=== PATIENT | male | born 1955 | race Caucasian/White ===

== ENCOUNTER 2016-04-05 06:20 | Day surgery (SDC) | payer MEDICARE, OTHER ==
[2016-04-03 13:53] VITALS: BMI 38.0
[~2016-04-05 06:20] MED LIST: ALPRAZolam 0.25 MG TAB PO PRN; ALPRAZolam 0.5 MG TAB PO PRN; ASPIRIN 325 MG TAB PO STA; ATORVASTATIN 80 MG TAB PO STA; NITROGLYCERIN SL TABS 0.4 MG TAB SUBLINGUAL PRN; SODIUM CHLORIDE 0.9% 1,000 ML in EMPTY BAG 1 BAG IV ONE
[2016-04-05 07:19] VITALS: RESP 20; TEMP 98.6
[2016-04-05] MEDS ORDERED: IV FLUID CONTINUATION 1,000 ML IV ONE (07:50)
[2016-04-05] MEDS ORDERED: MIDAZOLAM 2 MG/2 ML VIAL IV ONE (08:05)
[2016-04-05] MEDS ORDERED: LIDOCAINE 2% INJ 20 MG/ML SQ ONE (08:06)
[2016-04-05] MEDS ORDERED: RX INFO: IV CONTRAST WAS GIVEN 1 EACH MISC MISCELLANE PRN (08:29)
[2016-04-05] MEDS ORDERED: SODIUM CHLORIDE 0.9% 1,000 ML IV SCH (08:30)
[2016-04-05] MEDS ORDERED: IOHEXOL 350 MG/ML 100 ML BOTTLE INJ ONE (08:32)
--- NOTE | 2016-04-05 08:55 | CC ---
DATE OF SERVICE: INDICATION: Unstable angina. PROCEDURE NOTE: After obtaining informed consent, left heart catheterization and coronary angiogram are performed via the right femoral artery using standard Cj catheters. Right coronary artery was sub selectively engaged using a Gil catheter. Patient tolerated the procedure well without any obvious immediate complications. A femoral angiogram was performed and Angio-Seal was deployed for hemostasis. FINDINGS: 1. HEMODYNAMICS: Left ventricular end-diastolic pressure is 26 to 28 mm. There is no significant gradient across the aortic valve. 2. LEFT VENTRICULOGRAM: Left ventriculogram was not performed. 3. ANGIOGRAPHIC DATA: Left main coronary artery: Left main coronary artery is a normal size vessel and is free of stenosis. It divides into left anterior descending coronary artery and circumflex coronary artery. LAD and its branches, circumflex coronary artery and its branches are free of significant stenosis. Right coronary artery is a nondominant vessel and engaged sub selectively, does not reveal significant stenosis. CONCLUSIONS: 1. Normal coronary arteries. 2. Elevated left ventricular end-diastolic pressures. This patient's chest discomfort seems to be noncardiac in origin and his management is going to be in the form of risk factor modification and optimal medical therapy. I discussed these issues at length with the patient. He understands and is in agreement with the plans.
[2016-04-05 12:02] VITALS: BP 124/60; PULSE 60
== END 2016-04-05 14:00 | disposition home or self-care (01) ==
LOC: CATHCVL 06:20
PROVIDERS: ATTEND Internal Medicine Cardiovascular Disease
DX: R07.89 Other chest pain (principal); R94.39 Abnormal result of other cardiovascular function study; I10 Essential (primary) hypertension; Z79.891 Long term (current) use of opiate analgesic; Z79.51 Long term (current) use of inhaled steroids; Z79.899 Other long term (current) drug therapy
CPT/HCPCS: 93458; C1760; C1894; C1769; J2001; J2250; Q9967

== ENCOUNTER 2016-07-13 05:50 | Day surgery (SDC) | payer MEDICARE, OTHER ==
[2016-07-11 16:57] VITALS: BMI 38.2
[~2016-07-13 05:50] MED LIST changes: -ALPRAZolam 0.25 MG TAB PO PRN; -ALPRAZolam 0.5 MG TAB PO PRN; -ASPIRIN 325 MG TAB PO STA; -ATORVASTATIN 80 MG TAB PO STA; +DEXAMETHASONE SOD PHOSPHATE 10 MG/ML 1 ML VIAL IV ONE; +HEPARIN SODIUM,PORCINE 5,000 UNIT/ML 1 ML VIAL SQ ONE; +HYDROmorphone 1 MG/ML 1 ML SYRINGE IVP PRN; +LACTATED RINGERS 1,000 ML IV SCH; +LIDOCAINE 1% 20 ML VIAL (10MG/ML) FOR IV START INTRADERMA PRN; +MIDAZOLAM 2 MG/2 ML VIAL IV PRN; -NITROGLYCERIN SL TABS 0.4 MG TAB SUBLINGUAL PRN; +ONDANSETRON 4 MG/2 ML VIAL IVP ONE; +SCOPOLAMINE 1.5MG/72HR PATCH TRANSDERM ONE; -SODIUM CHLORIDE 0.9% 1,000 ML in EMPTY BAG 1 BAG IV ONE; +ceFAZolin 2 GM in SODIUM CHLORIDE 0.9% 100 ML IVPB ONE
[2016-07-13 06:52] VITALS: TEMP 97.9
--- NOTE | 2016-07-13 07:49 | P.GSHP ---
History of Present Illness H&P Date: 07/13/16 Chief Complaint: History of colon cancer This is a 60-year-old male referred from Dr. tang. Patient presents today for removal Port-A-Cath. He has a history of colon cancer. - Constitutional Constitutional: Reports as per HPI Past Medical History Past Medical History: Asthma, Cancer, Chest Pain / Angina, COPD, Hypertension, Prostate Disorder Additional Past Medical History / Comment(s): HX COLON AND PROSTATE CA, NEUROPATHY MICHEL HANDS AND FEET, irregular heart beat, hx diverticulitis, Bronchitis in 2016. History of Any Multi-Drug Resistant Organisms: None Reported Past Surgical History: Bowel Resection, Hernia Repair, Orthopedic Surgery Additional Past Surgical History / Comment(s): BOWEL RESECTION X2 (ONE FROM DIVERTICULITIS, ONE R/T CA), michel knee arthroscopy, port in chest, lymph nodes from groin, left testicule surgery for epididymitis. Currently Port not functioning. Past Anesthesia/Blood Transfusion Reactions: No Reported Reaction Past Psychological History: Anxiety, Depression Smoking Status: Former smoker Past Alcohol Use History: None Reported Additional Past Alcohol Use History / Comment(s): quit smoking 30 yrs ago, smoked for 20 yrs, 1 PPD Past Drug Use History: None Reported - Past Family History Mother Family Medical History: No Reported History Medications and Allergies Home Medications Medication Instructions Recorded Confirmed Type Albuterol Inhaler [Ventolin 2 puff INHALATION QID 02/24/15 07/11/16 History Inhaler] Budesonide/Formoterol Fumarate 1 puff INHALATION DIRECTED PRN 02/24/15 History [Symbicort 80-4.5 Mcg Inhaler] FLUoxetine HCL [PROzac] 20 mg PO TID 02/24/15 07/11/16 History Gabapentin [Neurontin] 300 mg PO BID 02/24/15 07/11/16 History Zolpidem [Ambien] 5 mg PO HS 02/24/15 07/11/16 History ALPRAZolam [Xanax] 0.25 mg PO TID PRN 04/03/16 07/11/16 History Albuterol Nebulized [Ventolin 2.5 mg INHALATION BID 04/03/16 07/11/16 History Nebulized] Aspirin [Adult Low Dose Aspirin EC] 81 mg PO HS 04/03/16 07/11/16 History Cholecalciferol [Vitamin D3] 2,000 unit PO DAILY 04/03/16 07/11/16 History Lisinopril [Zestril] 2.5 mg PO HS 04/03/16 07/11/16 History Metoprolol Tartrate [Lopressor] 50 mg PO HS 04/03/16 07/11/16 History Nitroglycerin Sl Tabs [Nitrostat] 0.4 mg SUBLINGUAL DIRECTED PRN 04/03/16 History Calcium Carbonate [Calcium] 600 mg PO DAILY 07/11/16 07/11/16 History Allergies Allergy/AdvReac Type Severity Reaction Status Date / Time No Known Allergies Allergy Verified 07/11/16 16:27 Surgical - Exam Vital Signs Temp Pulse Resp BP Pulse Ox 97.9 F 55 L 18 128/69 96 07/13/16 06:50 07/13/16 06:50 07/13/16 06:50 07/13/16 06:50 07/13/16 06:50 - General well developed, no distress - Eyes PERRL - ENT normal pinna - Neck no masses - Respiratory normal expansion - Cardiovascular Rhythm: regular - Abdomen Abdomen: soft, non tender Assessment and Plan Plan: History of colon cancer. We'll remove Port-A-Cath.
[2016-07-13] MEDS ORDERED: fentaNYL (PF) 50 MCG/ML 2 ML AMP ONE (07:53)
[2016-07-13] MEDS ORDERED: MIDAZOLAM 2 MG/2 ML VIAL ONE (07:53)
[2016-07-13] MEDS ORDERED: PROPOFOL 10 MG/ML 20 ML VIAL IV ONE (07:53)
[2016-07-13] MEDS ORDERED: LIDOCAINE 1% INJ 10MG/ML (20 ML MDV) ONE (07:53)
[2016-07-13] MEDS ORDERED: LIDOCAINE 1%-EPI 1:100,000 20 ML VIAL SQ ONE ×3 (08:16→08:19)
--- NOTE | 2016-07-13 08:30 | P.OP ---
Date of Procedure: 07/13/16 Preoperative Diagnosis: Colon cancer Postoperative Diagnosis: History of colon cancer Procedure(s) Performed: Removal of Port-A-Cath Anesthesia: MAC Surgeon: Gwyn Myesr Estimated Blood Loss (ml): 3 Pathology: none sent Condition: stable Disposition: PACU Description of Procedure: The patient's placed on the operating table in the supine position. He received IV sedation. His chest wall was prepped and draped in usual sterile fashion. The patient's skin was anesthetized 1% local Xylocaine. Then a skin incision was made over the Port-A-Cath. Using blunt and sharp dissection with cautery the removed from subcutaneous tissues. The Bovie was used for hemostasis. The skin was closed interrupted 3-0 Monocryl suture. Dermabond was applied. Patient top she will well and was sent to cover room stable condition.
[2016-07-13 09:02] VITALS: RESP 16
[2016-07-13 09:17] VITALS: BP 110/52; PULSE 55
== END 2016-07-13 09:27 | disposition home or self-care (01) ==
LOC: OR 05:50
PROVIDERS: ATTEND Surgery
DX: Z45.2 Encounter for adjustment and management of vascular access device (principal); C18.9 Malignant neoplasm of colon, unspecified; J44.9 Chronic obstructive pulmonary disease, unspecified; Z87.891 Personal history of nicotine dependence; I10 Essential (primary) hypertension; I25.10 Atherosclerotic heart disease of native coronary artery without angina pectoris; Z85.46 Personal history of malignant neoplasm of prostate; G62.9 Polyneuropathy, unspecified; Z79.82 Long term (current) use of aspirin; Z79.51 Long term (current) use of inhaled steroids; Z79.899 Other long term (current) drug therapy
CPT/HCPCS: 36590; J2250; J1644; J1100; J0690; J2405; J2001; J3010; J2704

== ENCOUNTER 2018-10-23 10:36 | Emergency (ER) | payer MEDICARE, OTHER ==
[2018-10-23] MEDS ORDERED: KETOROLAC 60 MG/2 ML VIAL IM STA (11:32)
--- NOTE | 2018-10-23 11:38 | ED ---
Back Pain HPI - General Chief Complaint: Back Pain/Injury Stated Complaint: rt sided back/leg pain Time Seen by Provider: 10/23/18 11:15 Source: patient Limitations: no limitations - History of Present Illness Initial Comments: Patient is a 63-year-old male presenting to the emergency Department with complaints of right low back pain radiating down the back of the right leg 3 days. Patient denies any injuries or trauma to the area. Patient has long- standing history of lumbar disc disease, history of colon and prostate cancer. Patient states he went to [facility] yesterday for same complaint. Patient did have a x-ray that was normal. Patient states they did not take his complaints seriously and gave him orthopedic referral about an hour away. Patient states the pain is not getting better and he wanted another opinion. Patient states he normally walks with a cane and states he's been having trouble even walking. Patient denies loss of bowel or bladder control, saddle paresthesias. No other complaints at this time. - Related Data Home Medications Medication Instructions Recorded Confirmed Albuterol Inhaler [Ventolin 2 puff INHALATION QID 02/24/15 07/11/16 Inhaler] Budesonide/Formoterol Fumarate 1 puff INHALATION DIRECTED PRN 02/24/15 07/11/16 [Symbicort 80-4.5 Mcg Inhaler] FLUoxetine HCL [PROzac] 20 mg PO TID 02/24/15 07/11/16 Gabapentin [Neurontin] 300 mg PO BID 02/24/15 07/11/16 Zolpidem [Ambien] 5 mg PO HS 02/24/15 07/11/16 ALPRAZolam [Xanax] 0.25 mg PO TID PRN 04/03/16 07/11/16 Albuterol Nebulized [Ventolin 2.5 mg INHALATION BID 04/03/16 07/11/16 Nebulized] Aspirin [Adult Low Dose Aspirin EC] 81 mg PO HS 04/03/16 07/11/16 Cholecalciferol [Vitamin D3] 2,000 unit PO DAILY 04/03/16 07/11/16 Lisinopril [Zestril] 2.5 mg PO HS 04/03/16 07/11/16 Metoprolol Tartrate [Lopressor] 50 mg PO HS 04/03/16 07/11/16 Nitroglycerin Sl Tabs [Nitrostat] 0.4 mg SUBLINGUAL DIRECTED PRN 04/03/16 07/11/16 Calcium Carbonate [Calcium] 600 mg PO DAILY 07/11/16 07/11/16 Previous Rx's Medication Instructions Recorded predniSONE 20 mg PO BID 5 Days #10 tab 10/23/18 Allergies Allergy/AdvReac Type Severity Reaction Status Date / Time No Known Allergies Allergy Verified 10/23/18 11:14 Review of Systems ROS Statement: Those systems with pertinent positive or pertinent negative responses have been documented in the HPI. ROS Other: All systems not noted in ROS Statement are negative. Past Medical History Past Medical History: Asthma, Cancer, Chest Pain / Angina, COPD, Hypertension, Prostate Disorder Additional Past Medical History / Comment(s): HX COLON AND PROSTATE CA, NEUROPATHY MICHEL HANDS AND FEET, irregular heart beat, hx diverticulitis, Bronchitis in 2016. History of Any Multi-Drug Resistant Organisms: None Reported Past Surgical History: Bowel Resection, Hernia Repair, Orthopedic Surgery Additional Past Surgical History / Comment(s): BOWEL RESECTION X2 (ONE FROM DIVERTICULITIS, ONE R/T CA), michel knee arthroscopy, port in chest, lymph nodes from groin, left testicule surgery for epididymitis. Currently Port not functioning. Past Anesthesia/Blood Transfusion Reactions: No Reported Reaction Past Psychological History: Anxiety, Depression Smoking Status: Former smoker Past Alcohol Use History: None Reported Past Drug Use History: None Reported - Past Family History Mother Family Medical History: No Reported History General Exam - General Exam Comments Initial Comments: GENERAL: Well-appearing, well-nourished and in no acute distress. HEAD: Atraumatic, normocephalic. EYES: Pupils equal round and reactive to light, extraocular movements intact, sclera anicteric, conjunctiva are normal. ENT: TMs normal, nares patent, oropharynx clear without exudates. Moist mucous membranes. NECK: Normal range of motion, supple without lymphadenopathy or JVD. LUNGS: Breath sounds clear to auscultation bilaterally and equal. No wheezes rales or rhonchi. HEART: Regular rate and rhythm without murmurs, rubs or gallops. ABDOMEN: Soft, nontender, normoactive bowel sounds. No guarding, no rebound. No masses appreciated. : Deferred EXTREMITIES: No pitting or edema. No clubbing or cyanosis. Pain with palpation of the right lumbar area, paraspinals, right gluteal. Positive SLR on right and increased pain with dorsiflexion of the right foot. Sensation is equal in bilateral lower extremities. Patient's strength is 5 out of 5 lower extremities. NEUROLOGICAL: Cranial nerves II through XII grossly intact. Normal speech, normal gait. PSYCH: Normal mood, normal affect. SKIN: Warm, Dry, normal turgor, no rashes or lesions noted. Limitations: no limitations Course Vital Signs 10/23/18 10/23/18 11:11 12:09 Temperature 98.5 F 97.8 F Pulse Rate 61 75 Respiratory 20 17 Rate Blood Pressure 132/71 127/74 O2 Sat by Pulse 99 98 Oximetry Medical Decision Making - Medical Decision Making Patient is 63-year-old male with complaints of right-sided low back pain with radiation into his right lower leg. Patient denies any trauma. Patient has long-standing history of lumbar disc disease as well as a history of colon cancer and prostate cancer. On exam patient has and symptoms consistent with right sciatica. Was discussed with patient that he continue with anti- inflammatories, Tylenol, alternating between the 2. Patient will use heat and ice in the area. Referral was given for orthopedic. Patient is in agreement with this plan. Patient is stable for discharge. Case discussed with Dr. Lange. Disposition Clinical Impression: Low back pain, Sciatica Disposition: HOME SELF-CARE Condition: Stable Instructions (If sedation given, give patient instructions): Sciatica (ED) Additional Instructions: Please return to the Emergency Department if symptoms worsen or any other concerns. Follow up with orthopedics as discussed. Prescriptions: predniSONE 20 mg PO BID 5 Days #10 tab Is patient prescribed a controlled substance at d/c from ED?: No Referrals: Mohan Mcdonald MD [Primary Care Provider] - 1-2 days
[2018-10-23 12:17] VITALS: BP 127/74; PULSE 75; RESP 17; TEMP 97.8
== END 2018-10-23 12:11 | disposition home or self-care (01) ==
LOC: EC 10:36
DX: M54.41 Lumbago with sciatica, right side (principal); J44.9 Chronic obstructive pulmonary disease, unspecified; I20.9 Angina pectoris, unspecified; I10 Essential (primary) hypertension; G62.9 Polyneuropathy, unspecified; F32.9 Major depressive disorder, single episode, unspecified; F41.9 Anxiety disorder, unspecified; Z87.891 Personal history of nicotine dependence; Z79.82 Long term (current) use of aspirin; Z79.899 Other long term (current) drug therapy; Z85.038 Personal history of other malignant neoplasm of large intestine; Z85.46 Personal history of malignant neoplasm of prostate; Z90.49 Acquired absence of other specified parts of digestive tract
CPT/HCPCS: 99283; 96372; J1885

== ENCOUNTER → 2019-04-06 | Outpatient (CLI) | payer MEDICARE, OTHER ==
[2019-04-06 11:20] LABS: Basophils # (A) 0.1 k/uL (0-0.2); Basophils % (A) 1 %; Eosinophils # (A) 0.4 k/uL (0-0.7); Eosinophils % (A) 5 %; HCT 42.7 % (39.0-53.0); HGB 14.1 gm/dL (13.0-17.5); Lymphocytes # (A) 2.2 k/uL (1.0-4.8); Lymphocytes % (A) 32 %; MCH 31.1 pg (25.0-35.0); MCHC 33.1 g/dL (31.0-37.0); MCV 93.9 fL (80.0-100.0); Mean Platelet Volume 6.8; Monocytes # (A) 0.4 k/uL (0-1.0); Monocytes % (A) 6 %; Neutrophils # (A) 3.8 k/uL (1.3-7.7); Neutrophils % (A) 54 %; Platelet Count 305 k/uL (150-450); RBC 4.55 m/uL (4.30-5.90); RDW 12.7 % (11.5-15.5); WBC 7.1 k/uL (3.8-10.6)
[2019-04-06 11:28] LABS: African American GFR (CKD) >90 (>60 ml/min/1.73 sqM); Anion Gap 7 mmol/L; Blood Urea Nitrogen 15 mg/dL (9-20); Calcium 9.2 mg/dL (8.4-10.2); Carbon Dioxide 28 mmol/L (22-30); Chloride 106 mmol/L (98-107); Glucose 106 mg/dL (74-99); Non-African American GFR(CKD) 84 (>60 ml/min/1.73 sqM); Potassium 4.2 mmol/L (3.5-5.1); Sodium 141 mmol/L (137-145)
--- NOTE | 2019-04-06 11:32 | XR ---
EXAMINATION TYPE: XR chest 2V DATE OF EXAM: 04/06/2019 COMPARISON: 09/03/2012 HISTORY: Shortness of breath TECHNIQUE: Frontal and lateral views of the chest are obtained. FINDINGS: Scattered senescent parenchymal changes noted. Hyperinflation compatible with COPD. No evidence for infiltrate. No evidence for atelectasis. Heart size is stable. Mediastinal structures are stable and grossly unremarkable. No evidence for hilar prominence. Degenerative changes dorsal spine. IMPRESSION: 1. No evidence for acute pulmonary disease.
[2019-04-06 12:05] LABS: INR 0.9 (<1.2); Partial Thromboplastin Time 23.9 sec (22.0-30.0); Prothrombin Time 9.7 sec (9.0-12.0)
== END | disposition home or self-care (01) ==
LOC: LABPAT 10:43
PROVIDERS: ATTEND Orthopaedic Surgery Orthopaedic Surgery of the Spine
DX: Z01.818 Encounter for other preprocedural examination (principal); Z01.812 Encounter for preprocedural laboratory examination; M54.10 Radiculopathy, site unspecified
CPT/HCPCS: 36415; 71046; 80048; 85025; 85610; 85730; 86850; 86900; 86901

== ENCOUNTER 2019-04-15 05:40 | Day surgery (SDC) | payer MEDICARE, OTHER ==
[2019-04-10 11:06] VITALS: BMI 40.3
[~2019-04-15 05:40] MED LIST changes: +BACITRACIN 50,000 UNIT, POLYMYXIN B 500,000 UNIT in SODIUM CHLORIDE 0.9% IRRIGATIO 1,00... IRRIGATION ONE; -DEXAMETHASONE SOD PHOSPHATE 10 MG/ML 1 ML VIAL IV ONE; -HEPARIN SODIUM,PORCINE 5,000 UNIT/ML 1 ML VIAL SQ ONE; -HYDROmorphone 1 MG/ML 1 ML SYRINGE IVP PRN; -LACTATED RINGERS 1,000 ML IV SCH; -LIDOCAINE 1% 20 ML VIAL (10MG/ML) FOR IV START INTRADERMA PRN; -MIDAZOLAM 2 MG/2 ML VIAL IV PRN; -ONDANSETRON 4 MG/2 ML VIAL IVP ONE; -SCOPOLAMINE 1.5MG/72HR PATCH TRANSDERM ONE; -ceFAZolin 2 GM in SODIUM CHLORIDE 0.9% 100 ML IVPB ONE
[2019-04-15] MEDS ORDERED: ONDANSETRON 4 MG/2 ML VIAL IVP ONE ×2 (05:52→09:30)
[2019-04-15] MEDS ORDERED: DEXAMETHASONE SOD PHOSPHATE 10 MG/ML 1 ML VIAL IV ONE (05:52)
[2019-04-15] MEDS ORDERED: MIDAZOLAM 2 MG/2 ML VIAL IV PRN (05:52)
[2019-04-15] MEDS ORDERED: LIDOCAINE 1% 20 ML VIAL (10MG/ML) FOR IV START INTRADERMA PRN (05:52)
[2019-04-15] MEDS ORDERED: fentaNYL (PF) 50 MCG/ML 2 ML AMP IVP PRN (05:52)
[2019-04-15] MEDS ORDERED: ceFAZolin 3 GM in SODIUM CHLORIDE 0.9% 100 ML IVPB ONE (06:00)
[2019-04-15] MEDS: LACTATED RINGERS 1,000 ML IV SCH (06:26)
[2019-04-15] MEDS ORDERED: GELATIN SPONGE,ABSORB (LARGE) 1 EACH SPONGE TOPICAL ONE (07:30)
[2019-04-15] MEDS ORDERED: methylPREDNISolone ACETATE 40 MG/ML 1 ML VIAL MISCELLANE ONE (07:30)
[2019-04-15] MEDS ORDERED: LIDOCAINE 0.5%-EPI 1:200,000 50 ML VIAL SQ ONE (07:30)
[2019-04-15] MEDS ORDERED: THROMBIN (BOVINE) 5,000 UNIT VIAL TOPICAL ONE (07:30)
[2019-04-15] MEDS ORDERED: PROPOFOL 10 MG/ML 20 ML VIAL IV ONE (07:58)
[2019-04-15] MEDS ORDERED: LIDOCAINE 1% INJ 10MG/ML (20 ML MDV) ONE (07:58)
[2019-04-15] MEDS ORDERED: HYDROmorphone (PF) 1 MG/ML ONE (07:58)
[2019-04-15] MEDS ORDERED: SUCCINYLCHOLINE CHLORIDE 100 MG/5 ML SYR IV ONE (07:58)
[2019-04-15] MEDS ORDERED: KETAMINE 10 MG/ML 20 ML VIAL ONE (07:58)
[2019-04-15] MEDS ORDERED: fentaNYL (PF) 50 MCG/ML 2 ML AMP ONE (07:58)
[2019-04-15] MEDS ORDERED: PHENYLEPHRINE-0.9% NACL SYG 1 MG/10 ML SYRINGE ONE (07:58)
[2019-04-15] MEDS ORDERED: ePHEDrine SULFATE/0.9% NACL/PF 50 MG/5 ML SYRINGE IV ONE (07:58)
[2019-04-15] MEDS ORDERED: MIDAZOLAM 2 MG/2 ML VIAL ONE (07:58)
--- NOTE | 2019-04-15 08:36 | FL ---
EXAMINATION TYPE: FL guidance operating room DATE OF EXAM: 04/15/2019 CLINICAL HISTORY: Low back pain. TECHNIQUE: Fluoroscopy. COMPARISON: None. FINDINGS: Fluoroscopic guidance was provided during pain relief procedure performed by Dr. Snowden. A total of 5 seconds of fluoroscopic time was utilized during the procedure and two spot images are ac quired. Images acquired shows needle localization of the lower lumbar spine at the L3-L4 level. IMPRESSION: As Above.
[2019-04-15] MEDS ORDERED: LACTATED RINGERS 1,000 ML IV ONE ×3 (09:09→14:23)
[2019-04-15] MEDS ORDERED: HYDROmorphone 0.5 MG/0.5 ML SYRINGE IVP PRN (09:30)
[2019-04-15] MEDS ORDERED: IBUPROFEN 600 MG TAB PO PRN (09:30)
[2019-04-15] MEDS ORDERED: BENZOCAINE/MENTHOL LOZENG 1 EACH LOZENGE MUCOUS MEM PRN (09:30)
[2019-04-15] MEDS ORDERED: KETOROLAC 30 MG/ML 1 ML VIAL IVP PRN (09:30)
[2019-04-15] MEDS ORDERED: HYDROcodone/APAP 5-325MG 1 EACH TAB PO PRN (09:30)
[2019-04-15] MEDS ORDERED: ALBUTEROL NEBULIZED 2.5 MG/3 ML INHALATION PRN (09:32)
[2019-04-15] MEDS ORDERED: ALPRAZolam 0.25 MG TAB PO PRN (09:32)
[2019-04-15] MEDS ORDERED: NITROGLYCERIN SL TABS 0.4 MG TAB SUBLINGUAL PRN (09:32)
[2019-04-15] MEDS ORDERED: HYDROCHLOROTHIAZIDE 12.5 MG CAP PO PRN (09:32)
--- NOTE | 2019-04-15 09:38 | P.OP ---
Date of Procedure: 04/15/19 Preoperative Diagnosis: Herniated nucleus pulposis L3 4, right lower extremity radiculopathy, low back pain, degenerative disc disease Postoperative Diagnosis: Same Anesthesia: GETA Pathology: none sent Condition: stable Disposition: PACU Description of Procedure: BRIEF OPERATIVE NOTE Preoperative Diagnosis:Herniated nucleus pulposis L3 4, right lower extremity radiculopathy, low back pain, degenerative disc disease Postoperative Diagnosis:Herniated nucleus pulposis L3 4, right lower extremity radiculopathy, low back pain, degenerative disc disease Procedure: Laminectomy and decompression L3 4 Discectomy for decompression L3 4 Use of fluoroscopic guidance Surgeon: Dr. Snowden Engineering Associate: Akin Benitez is present throughout the entire the case persistence during positioning, dissection, exposure, visualization, and all crucial elements of the case as well as closure. Anesthesia: General anesthesia per Dr. Flower Estimated blood loss: Approximately 150 mL Complications: None apparent Components implanted: None Disposition: To recovery room in good stable condition. OPERATIVE INDICATIONS The patient has been having issues in their lower back and lower extremities. He isn't having severe pain over his right lower extremity then L3 and L4 distribution. His found have a disc herniation with extruded fragment at L3 4 which correlated with his back and lower extremity symptoms. He continued to have pain despite aggressive conservative care. He is not having any lasting benefit spite conservative treatment. The patient has been through conservative treatment. We discussed various treatment options including surgery, and the patient wishes to proceed with surgery We discussed the risk, patient's alt ernatives and benefits of surgery including but not limited to, risk of bleeding risk of infection, risk of need for further surgery, risk of decreased, loss of motion, loss of function, nerve damage, paralysis, heart attack, blindness and . OPERATIVE SUMMARY After discussing all the risks, patient alternatives and benefits at length, the patient elected to proceed with surgical intervention, signed informed consent, and presented for their procedure. The patient was seen and examined in the preoperative holding area and the surgical site was marked. The patient was given antibiotics and brought to the operating room. The patient was sedated and intubated by anesthesia in standard fashion. The patient was positioned on to the operating room table in a prone position on the appropriate frame which was well-padded and well molded. We were careful to pad any bony prominences and pressure points. We were careful to maintain the patient's cervical spine and good neutral alignment and position throughout. The patient was prepped and draped in a normal standard fashion. An appropriate timeout and keystone protocol performed. We were able to proceed with the surgery. Fluoroscopy was utilized to establish the appropriate level. The local wound area was infiltrated with local anesthetic. An incision was made at the midline longitudinally over the appropriate levels at L3 4. Dissection was taken down subcutaneously to the level of the fascia which was split midline. Dissection was taken over the lamina. Intraoperative fluoroscopy was taken which showed a marker at the appropriate level of L3 4. With the appropriate level positively confirmed, we were able to proceed with laminectomy. The wound was copiously irrigated and suctioned dry as had been done periodically throughout the case. I performed a laminectomy at L3 4 with a combination of curettes and a high-speed bur and Kerrison rongeurs. A small medial facetectomy was performed again further access. A partial foraminotomy was also performed. Portions of the ligamentum flavum were taken down to expose the dura and traversing nerve root. I was able to mobilize the traversing nerve root and gain access to the disc space. Note was made of obvious compression from the disc. Protecting the soft tissue structures, a small annulotomy was established. I was able to perform discectomy and remove any extruded disc fragments and any loose fragments from within the disc itself. He had some epidural bleeding around the area and I was able to obtain good hemostasis with bipolar cauterization as well as Gelfoam soaked in thrombin. There is some disc desiccation noted. I tried to preserve the disc annulus that appeared stable. I was able to remove one extruded fragment which correlate well with the MRI findings which gave good relief at the nerve roots. There were no further extruded fragments noted. There is no evidence of dural tear or leak. Good hemostasis maintained. The wound was copiously irrigated and suctioned dry. Good decompression and discectomy was noted. We were able to proceed with closure. The fascia was closed for a watertight closure. The subcuticular tissue was closed with absorbable suture. The wound was cleaned and dried and dressed with the appropriate dressing. The drapes were broken down. The patient was gently rolled back onto their hospital bed being careful to maintain their cervical spine and good neutral alignment and position. They were woken up by anesthesia, extubated, and brought to the recovery room in good stable condition. The patient will be admitted to the hospital for observation and for appropriate postoperative care, medical management and monitoring. We will continue to follow them closely about the postoperative course.
[2019-04-15] MEDS: HYDROmorphone 0.5 MG/0.5 ML SYRINGE IVP PRN ×2 (10:05→11:00)
[2019-04-15] MEDS: HYDROcodone/APAP 7.5-325MG 1 EACH TAB PO SCH ×2 (12:32→20:52)
[2019-04-15] MEDS: SODIUM CHLORIDE 0.9% 1,000 ML IV SCH ×2 (15:41→16:51)
[2019-04-15] MEDS: ALBUTEROL NEBULIZED 2.5 MG/3 ML INHALATION SCH ×4 (15:41→20:18)
[2019-04-15 16:35] VITALS: RESP 16
[2019-04-15] MEDS: HYDROcodone/APAP 5-325MG 1 EACH TAB PO PRN (16:51)
[2019-04-15] MEDS: ceFAZolin 3 GM in SODIUM CHLORIDE 0.9% 100 ML IVPB SCH (16:51)
[2019-04-15] MEDS: SYMBICORT 160-4.5 MCG INHALER INHALATION SCH (20:18)
[2019-04-15] MEDS: GABAPENTIN 300 MG CAP PO SCH (20:51)
[2019-04-15] MEDS: FLUoxetine HCL 20 MG CAP PO SCH (20:51)
[2019-04-15] MEDS ORDERED: ASPIRIN 81 MG PO SCH (21:00)
[2019-04-15] MEDS ORDERED: METOPROLOL TARTRATE 25 MG TAB PO SCH (21:00)
[2019-04-15] MEDS ORDERED: ATORVASTATIN 10 MG TAB PO SCH (21:00)
[2019-04-16] MEDS: ceFAZolin 3 GM in SODIUM CHLORIDE 0.9% 100 ML IVPB SCH (00:43)
[2019-04-16] MEDS: HYDROcodone/APAP 5-325MG 1 EACH TAB PO PRN (01:33)
[2019-04-16] MEDS: LACTATED RINGERS 1,000 ML IV SCH (05:48)
[2019-04-16] MEDS: ALBUTEROL NEBULIZED 2.5 MG/3 ML INHALATION SCH (07:01)
[2019-04-16] MEDS: SYMBICORT 160-4.5 MCG INHALER INHALATION SCH (07:02)
[2019-04-16 07:48] VITALS: BP 117/68; PULSE 53; TEMP 97.9
--- NOTE | 2019-04-16 08:27 | P.DS ---
Providers Date of admission: 04/15/19 Attending physician: Cary Snowden Primary care physician: Mohan [facility] Course: The patient presented on the day of admission as per their operative note. He had a disc herniations at L34 with lower extremity radiculopathy on the right. After failing conservative treatment he underwent surgical intervention with laminectomy decompression as per his operative note. He has been sore overnight and very hesitant to try to get up and around. He was able to get up today on his own out of bed. He says his legs are doing well but his back is sore. He denies any bowel or bladder changes. Physical Exam The incision site is clean dry and intact. There is no erythema no drainage. There is no purulence no evidence of infection. Abdomen soft and nontender. Chest has good excursion with deep inspiration and expiration. The patient has active and passive range of motion intact at the upper and lower extremities. There is no acute change in neurologic status. He has sustained dorsal to plantar flexion and EHL intact. Hospital Course Postoperative day #1 status post laminectomy decompression and discectomy at L3 4 for a disc herniation with lower extremity radiculopathy Patient is progressing appropriately . He feels his right leg is doing better. The patient has been making good progress postoperatively, but is hesitant with his mobility. I had him get him out of bed today and he feels more confident that he will be able to mobilize better. They have completed the prophylactic antibiotics without any signs or symptoms of infection. The patient has been able to advance their diet, and is tolerating diet adequately. The pain was initially controlled with IV medications and is now controlled appropriately with oral medications. The patient has been able to increase their mobilizati on. The patient has progressed appropriately. I think they are in good stable condition for discharge today. They will be sent home with appropriate prescriptions. I answered their questions to the best of my ability in a language that they can understand and they are agreeable with the plan. They will follow up as directed in a Yajaira 2 weeks or sooner if he is having any problems. Plan - Discharge Summary Discharge Rx Participant: Yes New Discharge Prescriptions: New Hydrocodone/Acetaminophen [[place] 7.5-325] 1 tab PO Q6HR PRN 3 Days #12 tab PRN Reason: Pain No Action Zolpidem [Ambien] 5 mg PO HS Gabapentin [Neurontin] 300 mg PO BID FLUoxetine HCL [PROzac] 20 mg PO BID Albuterol Inhaler [Ventolin Inhaler] 2 puff INHALATION QID Aspirin [Adult Low Dose Aspirin EC] 81 mg PO HS ALPRAZolam [Xanax] 0.25 mg PO BID PRN PRN Reason: Anxiety Nitroglycerin Sl Tabs [Nitrostat] 0.4 mg SUBLINGUAL DIRECTED PRN PRN Reason: Chest Pain Albuterol Nebulized [Ventolin Nebulized] 2.5 mg INHALATION QID PRN PRN Reason: Shortness Of Breath Budesonide/Formoterol Fumarate [Symbicort 160-4.5 Mcg Inhaler] 2 puff INHALATION BID Lisinopril [Zestril] 5 mg PO QAM Metoprolol Tartrate [Lopressor] 25 mg PO HS Hydrocodone/Acetaminophen [[place] 7.5-325] 1 tab PO BID Montelukast [Singulair] 10 mg PO DAILY buPROPion HCL [Wellbutrin Sr] 200 mg PO QAM Bicalutamide [Casodex] 50 mg PO DAILY Atorvastatin [Lipitor] 10 mg PO HS Tamsulosin HCl [Flomax] 0.4 mg PO DAILY Hydrochlorothiazide 12.5 mg PO DAILY PRN PRN Reason: Edema Discharge Medication List Albuterol Inhaler [Ventolin Inhaler] 2 puff INHALATION QID 02/24/15 [History] FLUoxetine HCL [PROzac] 20 mg PO BID 02/24/15 [History] Gabapentin [Neurontin] 300 mg PO BID 02/24/15 [History] Zolpidem [Ambien] 5 mg PO HS 02/24/15 [History] ALPRAZolam [Xanax] 0.25 mg PO BID PRN 04/03/16 [History] Albuterol Nebulized [Ventolin Nebulized] 2.5 mg INHALATION QID PRN 04/03/16 [History] Aspirin [Adult Low Dose Aspirin EC] 81 mg PO HS 04/03/16 [History] Nitroglycerin Sl Tabs [Nitrostat] 0.4 mg SUBLINGUAL DIRECTED PRN 04/03/16 [History] Atorvastatin [Lipitor] 10 mg PO HS 04/10/19 [History] Bicalutamide [Casodex] 50 mg PO DAILY 04/10/19 [History] Budesonide/Formoterol Fumarate [Symbicort 160-4.5 Mcg Inhaler] 2 puff INHALATION BID 04/10/19 [History] Hydrochlorothiazide 12.5 mg PO DAILY PRN 04/10/19 [History] Hydrocodone/Acetaminophen [[place] 7.5-325] 1 tab PO BID 04/10/19 [History] Lisinopril [Zestril] 5 mg PO QAM 04/10/19 [History] Metoprolol Tartrate [Lopressor] 25 mg PO HS 04/10/19 [History] Montelukast [Singulair] 10 mg PO DAILY 04/10/19 [History] Tamsulosin HCl [Flomax] 0.4 mg PO DAILY 04/10/19 [History] buPROPion HCL [Wellbutrin Sr] 200 mg PO QAM 04/10/19 [History] Hydrocodone/Acetaminophen [[place] 7.5-325] 1 tab PO Q6HR PRN 3 Days #12 tab 04/15/19 [Rx] Follow up Appointment(s)/Referral(s): Cary Snowden DO [Doctor of Osteopathic Medicine] - 2 Weeks Activity/Diet/Wound Care/Special Instructions: Keep site clean. May shower with waterproof Tegaderm intact. Do not soak in a tub. After 72 hours postoperatively, patient May remove dressing and then may shower with area uncovered. Leave Steri-Strips intact and allow them to fray off on their own. May ambulate as tolerated. Avoid heavy or rigorous activity. No repetitive bending twisting or lifting. No overhead work. Discharge Disposition: HOME SELF-CARE
[2019-04-16] MEDS: HYDROcodone/APAP 7.5-325MG 1 EACH TAB PO SCH (08:44)
[2019-04-16] MEDS: FLUoxetine HCL 20 MG CAP PO SCH (08:44)
[2019-04-16] MEDS: GABAPENTIN 300 MG CAP PO SCH (08:44)
[2019-04-16] MEDS ORDERED: MONTELUKAST 10 MG TAB PO SCH (09:00)
[2019-04-16] MEDS ORDERED: BICALUTAMIDE 50 MG TAB PO SCH (09:00)
[2019-04-16] MEDS ORDERED: buPROPion SR 100 MG TABLET.ER PO SCH (09:00)
[2019-04-16] MEDS ORDERED: LISINOPRIL 5 MG TAB PO SCH (09:00)
[2019-04-16] MEDS ORDERED: TAMSULOSIN 0.4 MG CAP.ER.24H PO SCH (09:00)
== END 2019-04-16 10:34 | disposition home or self-care (01) ==
LOC: OR 05:40 → 4SSUR 14:50 → OR 04-16 10:34
PROVIDERS: ATTEND Orthopaedic Surgery Orthopaedic Surgery of the Spine
DX: M51.16 Intervertebral disc disorders with radiculopathy, lumbar region (principal); M48.062 Spinal stenosis, lumbar region with neurogenic claudication; M47.26 Other spondylosis with radiculopathy, lumbar region; M43.16 Spondylolisthesis, lumbar region; M25.78 Osteophyte, vertebrae; I10 Essential (primary) hypertension; I25.10 Atherosclerotic heart disease of native coronary artery without angina pectoris; J44.9 Chronic obstructive pulmonary disease, unspecified; E78.5 Hyperlipidemia, unspecified; F32.9 Major depressive disorder, single episode, unspecified; E55.9 Vitamin D deficiency, unspecified; E66.2 Morbid (severe) obesity with alveolar hypoventilation; F34.1 Dysthymic disorder; F41.9 Anxiety disorder, unspecified; Z90.49 Acquired absence of other specified parts of digestive tract; Z79.82 Long term (current) use of aspirin; Z79.51 Long term (current) use of inhaled steroids; Z79.899 Other long term (current) drug therapy; Z97.3 Presence of spectacles and contact lenses; Z85.038 Personal history of other malignant neoplasm of large intestine; Z85.46 Personal history of malignant neoplasm of prostate; Z88.6 Allergy status to analgesic agent; Z87.891 Personal history of nicotine dependence; Z92.21 Personal history of antineoplastic chemotherapy; Z92.3 Personal history of irradiation; Z98.890 Other specified postprocedural states; Z87.19 Personal history of other diseases of the digestive system; Z96.659 Presence of unspecified artificial knee joint; Z82.49 Family history of ischemic heart disease and other diseases of the circulatory system; Z68.39 Body mass index [BMI] 39.0-39.9, adult
CPT/HCPCS: 94640 ×4; 97161; 63030; J2250; J1030; J1100; S0106; J0690 ×2; J2405; J2001; J3010; J1885; J1170 ×2; J2370; J0330; J2704; 86850; 86900; 86901

== ENCOUNTER 2020-11-25 09:39 | Day surgery (SDC) | payer MEDICARE, OTHER ==
[2020-11-17 15:12] VITALS: BMI 38.0
[~2020-11-25 09:39] MED LIST changes: -BACITRACIN 50,000 UNIT, POLYMYXIN B 500,000 UNIT in SODIUM CHLORIDE 0.9% IRRIGATIO 1,00... IRRIGATION ONE; +DEXAMETHASONE SOD PHOSPHATE 4 MG/ML 1 ML VIAL IV ONE; +HYDROmorphone 0.5 MG/0.5 ML SYRINGE IVP PRN; +LACTATED RINGERS 1,000 ML IV SCH; +MIDAZOLAM 2 MG/2 ML VIAL IV PRN; +ONDANSETRON 4 MG/2 ML VIAL IVP ONE
[2020-11-25] MEDS ORDERED: LIDOCAINE 1% (10MG/ML) FOR IV START INTRADERMA ONE (10:40)
[2020-11-25] MEDS ORDERED: fentaNYL (PF) 50 MCG/ML 2 ML AMP IV ONE (11:05)
[2020-11-25] MEDS ORDERED: MIDAZOLAM 2 MG/2 ML VIAL IV ONE (11:05)
--- NOTE | 2020-11-25 11:53 | P.ANPRN ---
Procedure Note - Anesthesia - Nerve Block Performed Right Popliteal Single Time Out Performed: Yes (1103) Date of Procedure: 11/25/20 Procedure Start Time: 11:05 Procedure Stop Time: 11:09 Location of Patient: PreOp Indication: Acute Post-Operative Pain, Requested by Surgeon Specifically requested for management of pain by DrTobi: Aureliano Oliva Sedation Type: Sedate with meaningful contact maintained Preparation: Sterile Prep Position: Left Lateral Catheter: None Needle Types: Pajunk Needle Gauge: 21 Ultrasound used to visualize needle placement: Yes Ultrasound used to observe medication spread: Yes Injectate: 0.5% Ropivacaine (see comment for volume) (15cc + 15cc NACL PF) Blood Aspirated: No Pain Paresthesia on Injection Noted: No Resistance on Injection: Normal Image Stored and Saved: Yes Events: Uneventful and Well Tolerated Right Adductor Canal Single Time Out Performed: Yes (1103) Date of Procedure: 11/25/20 Procedure Start Time: 11:10 Procedure Stop Time: 11:16 Location of Patient: PreOp Indication: Acute Post-Operative Pain, Requested by Surgeon Specifically requested for management of pain by Dr.: Aureliano Oliva Sedation Type: Sedate with meaningful contact maintained Preparation: Sterile Prep Position: Supine Catheter: None Needle Types: Pajunk Needle Gauge: 21 Ultrasound used to visualize needle placement: Yes Ultrasound used to observe medication spread: Yes Injectate: 0.5% Ropivacaine (see comment for volume) (15cc + 15cc NACL PF) Blood Aspirated: No Pain Paresthesia on Injection Noted: No Resistance on Injection: Normal Image Stored and Saved: Yes Events: Uneventful and Well Tolerated
[2020-11-25] MEDS ORDERED: NEOSTIGMINE 1 MG/ML 10 ML VIAL ONE (12:32)
[2020-11-25] MEDS ORDERED: LIDOCAINE 1% INJ 10MG/ML (20 ML MDV) ONE (12:32)
[2020-11-25] MEDS ORDERED: SUCCINYLCHOLINE CHLORIDE VIAL 200 MG/10 ML VIAL IV ONE (12:32)
[2020-11-25] MEDS ORDERED: PROPOFOL 10 MG/ML 20 ML VIAL IV ONE (12:32)
[2020-11-25] MEDS ORDERED: ROPIVACAINE 5 MG/ML 30 ML VIAL ONE (12:32)
[2020-11-25] MEDS ORDERED: SODIUM CHLORIDE 0.9% (PF) 10 ML VIAL ONE (12:32)
[2020-11-25] MEDS ORDERED: GLYCOPYRROLATE 0.2 MG/ML 2 ML VIAL ONE (12:32)
[2020-11-25] MEDS ORDERED: ROCURONIUM 10 MG/ML (5 ML VIAL) IV ONE (12:32)
[2020-11-25] MEDS ORDERED: LACTATED RINGERS 1,000 ML IV ONE ×2 (14:15)
[2020-11-25 14:24] VITALS: TEMP 96.8
--- NOTE | 2020-11-25 14:31 | P.OP ---
Preoperative Diagnosis: Right Achilles tendon rupture Postoperative Diagnosis: Same Procedure(s) Performed: 1. Flexor hallucis longus tendon transfer right ankle 2. Secondary repair right Achilles tendon rupture Implants: (2) 4.75 mm swivel lock anchors 8 x 12 mm interference screw Anesthesia: FREDERICK Surgeon: Aureliano Oliva Estimated Blood Loss (ml): 3 Pathology: none sent Condition: stable Disposition: PACU Description of Procedure: Prior to the patient being brought to the operating room, anesthesia a dministered a nerve block on the right lower extremity utilizing ultrasonic guidance and mild sedation. Then the patient was brought into the operating room. Timeout was taken to confirm correct patient identifiers, correct site of surgery, and correct procedure. When the room was in agreement the patient was induced and placed under general anesthesia. Then the patient was rolled onto the operative room table in the prone position. Precautions were taken for proper padding the thoracic area as well as proper position the neck and padding under any bony prominences. When the nursing and anesthesia staff were satisfied with position of the patient a well-padded tourniquet was placed on the right thigh and then the right leg was prepped and draped usual in the usual manner. The leg was exsanguinated, the knee slightly flexed and the tourniquet inflated to 250 mmHg. Attention was directed over the posterior ankle a linear incision was made medial to the Achilles tendon. It was deepened down to the subcutaneous layer careful to identify, avoid, and retract any neurovascular structures and cauterize any bleeding vessels. Dissection was done to the medial subcutaneous tissue anterior to the Achilles tendon until the deep fascia was encountered. The deep fascia was opened which revealed the muscle belly of the flexor hallucis longus. The tendon was then traced into the medial and hindfoot ankle region. With the ankle and great toe maximally plantarflexed attention was placed on the muscle to harvest as much.tendon as possible and then the tendon was transected and delivered into the surgical field. A whipstitch was then placed in the distal portion of the tendon. It was wrapped in moistened gauze and set aside. Then attention was directed over the Achilles tendon with the soft tissue was dissected away from the tendon to expose the body of the tendon. The rupture site was identified and a scalpel passed through it resecting the diseased portion of tendon. Then utilizing the Arthrex PARS jig as a guide, a straight needle was inserted into position 1 to lock the tendon in place. 3 tape sutures were then placed through holes to 3 and 4 and the jig. The needle on position 1 was removed passing another suture through it for total of 4 strands of suture through the tendon. Small stab incisions were then made on either side of the Achilles insertion on the calcaneus. The tissues bony dissected down to bone. Drill holes for the 4.75 mm anchors were made in the holes tapped. The jig was removed allowing the sutures to lie along the course of the Achilles tendon. Next attention was directed back to the harvested tendon. The soft tissue was dissected just anterior to the Achilles tendon to the body of the calcaneus. A guidewire was inserted just anterior to the Achilles tendon and passed plantar and distal to avoid exiting the tuberosity of the calcaneus. An 8 mm drill was put over the guidewire and the drill hole completed. The guidewire was placed in the drill hole as one end of the wire had a eyelet tendons and the sutures from the whipstitch on the harvested tendon were placed in a eyelet and then the wire was pulled plantarly pulling the suture through the bottom of the foot. With the ankle in slight plantar flexion the suture was pulled so that the tendon stump to go into the drill hole in the calcaneus. Once adequate tensioning was achieved an 8 x 12 mm interference screw was inserted locking the tendon within the bone tunnel of the calcaneus. Once completed the ankle was taken through range of motion and it was noted that there was appropriate tension on the harvested tendon. The suture that exited the plantar surface of the foot was then cut below the level of the skin. The tendon passer was then inserted through the small stab holes on the calcaneus and were passing the distal stump of the tendon so it exited the rupture site. The suture was then captured and then pulled through the distal stump of the tendon out the hole in the calcaneus. Once tension was placed on the tendon there was some folding of the end of the tendon so that it didn't make adequate contact with the distal stump therefore a #2 FiberWire was used to oppose the tendon ends which essentially lock them in place. Once that of suture was then passed through the bone anchor and then impacted and to the calcaneus and then the anchor was advanced to lock the tendon Place. The other set of suture was fed through the eyelet of the other 4.75 mm anchor and placed under tension while the ankle was just slightly plantar flexed. The anchor along with the suture was then impacted and advanced into the calcaneus locking the suture in place. The tannery worker was removed and then the ankle was evaluated for appropriate tensioning. There was proper tensioning once completed and Amezcua's test was negative. The wound is irrigated with sterile saline. 3-0 Monocryl was used to sew the muscle belly from the flexor hallucis longus to the anterior surface of the Achilles tendon which essentially overlap the repair. The wound is again irrigated with normal saline the subcutaneous closure was then done with 3-0 Monocryl and skin closure done with chata. An Arthrex jumpstart was placed over the incision as well as a bulky dry dressing. The tourniquet was released and capillary refill return to all digits on the right foot. Patient is then placed in a well-padded, well molded plaster posterior mold/sugar tong splint. Which was held in slight plantar flexion as it dried. Once this splint was dried the patient was then rolled into the supine position on the transfer table at which point anesthesia was reversed. The patient was taken recovery with vital signs stable
[2020-11-25 14:34] VITALS: RESP 16
[2020-11-25] MEDS ORDERED: HYDROcodone/APAP 7.5-325MG 1 EACH TAB ONE (15:03)
[2020-11-25] MEDS ORDERED: HYDROcodone/APAP 7.5-325MG 1 EACH TAB PO ONE (15:03)
[2020-11-25 15:10] VITALS: BP 121/71; PULSE 62
[2020-11-25] MEDS ORDERED: ONDANSETRON 4 MG/2 ML VIAL ONE (15:23)
[2020-11-25] MEDS ORDERED: ONDANSETRON 4 MG/2 ML VIAL IVP ONE (15:34)
== END 2020-11-25 15:56 | disposition home or self-care (01) ==
LOC: OR 09:39
PROVIDERS: ATTEND Podiatrist
DX: S86.011A Strain of right Achilles tendon, initial encounter (principal); I10 Essential (primary) hypertension; F17.210 Nicotine dependence, cigarettes, uncomplicated; E78.5 Hyperlipidemia, unspecified; J44.9 Chronic obstructive pulmonary disease, unspecified; F41.8 Other specified anxiety disorders; G62.9 Polyneuropathy, unspecified; Z79.899 Other long term (current) drug therapy
CPT/HCPCS: 27650; 27691; 20900; 64447; 64445; 76942; C1713 ×2; J2250; J0330; J1100; J2710; J0690; J2405; J2001; J3010; J2795; J2704

== ENCOUNTER 2022-09-24 10:01 | Emergency (ER) | payer MEDICARE, OTHER ==
[2022-09-24] MEDS ORDERED: KETOROLAC 15 MG/ML 1 ML VIAL IM STA (10:56)
--- NOTE | 2022-09-24 11:00 | ED ---
Back Pain [facility] - General Chief Complaint: Back Pain/Injury Stated Complaint: back pain Time Seen by Provider: 09/24/22 10:35 Source: patient Limitations: no limitations - History of Present Illness Initial Comments: 67-year-old male with past medical history significant for prostate cancer currently on chemotherapy presents to the ED for chief complaint of back pain. Patient states that this is an ongoing issue. Patient states over the past couple days worse than usual. States pain of the upper buttocks radiating to the legs with associated paresthesias. Denies any recent injury. For this patient states he went to [place] had imaging. Patient states was provided steroids and pain shots there with improvement of the pain however notes that these medications have now worn off. Also currently takes [place] and Gabapentin in for the pain. Denies saddle anesthesia or incontinence. No other complaints. - Related Data Home Medications Medication Instructions Recorded Confirmed Albuterol Inhaler [Ventolin 2 puff INHALATION QID PRN 02/24/15 11/17/20 Inhaler] FLUoxetine HCL [PROzac] 20 mg PO BID 02/24/15 11/17/20 Zolpidem [Ambien] 5 mg PO HS 02/24/15 11/17/20 Albuterol Nebulized [Ventolin 2.5 mg INHALATION QID PRN 04/03/16 11/17/20 Nebulized] Aspirin [Adult Low Dose Aspirin EC] 81 mg PO HS 04/03/16 11/17/20 Nitroglycerin Sl Tabs [Nitrostat] 0.4 mg SUBLINGUAL DIRECTED PRN 04/03/16 11/17/20 Atorvastatin [Lipitor] 20 mg PO HS 04/10/19 11/17/20 Budesonide/Formoterol Fumarate 2 puff INHALATION BID 04/10/19 11/17/20 [Symbicort 160-4.5 Mcg Inhaler] Metoprolol Tartrate [Lopressor] 25 mg PO HS 04/10/19 11/17/20 Montelukast [Singulair] 10 mg PO DAILY 04/10/19 11/17/20 Tamsulosin HCl [Flomax] 0.4 mg PO DAILY 04/10/19 11/17/20 buPROPion HCL [Wellbutrin Sr] 200 mg PO QAM 04/10/19 11/17/20 lisinopriL [Zestril] 5 mg PO QAM 04/10/19 11/17/20 Previous Rx's Medication Instructions Recorded HYDROcodone/APAP 7.5-325MG [[place] 1 tab PO Q6HR PRN #30 tab 11/25/20 7.5-325] Allergies Allergy/AdvReac Type Severity Reaction Status Date / Time No Known Allergies Allergy Verified 09/24/22 10:23 Review of Systems ROS Statement: Those systems with pertinent positive or pertinent negative responses have been documented in the HPI. ROS Other: All systems not noted in ROS Statement are negative. Past Medical History Past Medical History: Asthma, Cancer, Chest Pain / Angina, COPD, Hyperlipidemia, Hypertension, Prostate Disorder Additional Past Medical History / Comment(s): HX COLON AND PROSTATE CA, NEUROPATHY MICHEL HANDS AND FEET, irregular heart beat, hx diverticulitis, Bronchitis in 2016. History of Any Multi-Drug Resistant Organisms: None Reported Past Surgical History: Back Surgery, Bowel Resection, Heart Catheterization, Hernia Repair, Orthopedic Surgery Additional Past Surgical History / Comment(s): BOWEL RESECTION X2 (ONE FROM DIVERTICULITIS, ONE R/T CA), michel knee arthroscopy, port in chest placed then removed , lymph nodes from groin, left testicule surgery for epididymitis. Past Anesthesia/Blood Transfusion Reactions: No Reported Reaction Past Psychological History: Anxiety, Depression Smoking Status: Former smoker Past Alcohol Use History: None Reported Past Drug Use History: None Reported - Past Family History Mother Family Medical History: No Reported History General Exam Limitations: no limitations General appearance: alert, in no apparent distress Eye exam: Present: normal appearance Neck exam: Present: other (No midline cervical spinal tenderness to palpation) Respiratory exam: Present: normal lung sounds bilaterally Cardiovascular Exam: Present: regular rate, normal rhythm GI/Abdominal exam: Present: soft Extremities exam: Present: other (Strength and sensation intact bilateral lower extremities. DP/PT pulses 2+. Subjective numbness of the bilateral feet.) Back exam: Present: other (No Midline thoracic or lumbar spinal tenderness to palpation) Neurological exam: Present: alert, oriented X3 Psychiatric exam: Present: normal affect, normal mood Skin exam: Present: warm, dry Course Vital Signs 09/24/22 10:21 Temperature 98.4 F Pulse Rate 85 Respiratory 20 Rate Blood Pressure 135/77 O2 Sat by Pulse 99 Oximetry Medical Decision Making - Medical Decision Making Was pt. sent in by a medical professional or institution (EDSON Nick, ORGANIC PREPARATION TECHNICIAN, urgent care, hospital, or long-term...) When possible be specific @ -No Did you speak to anyone other than the patient for history (EMS, parent, family, police, friend...)? What history was obtained from this source @ -No Did you review nursing and triage notes (agree or disagree)? Why? @ -I reviewed and agree with nursing and triage notes Were old charts reviewed (outside hosp., previous admission, EMS record, old EKG, old radiological studies, urgent care reports/EKG's, long-term records)? Report findings @ -Review of computed tomography scan from [facility] shows no evidence of fracture of the lumbar spine, L1 to L2 severe spinal stenosis due to posterior osteophyte, and grade 1 anterolisthesis on L4 on L5 Differential Diagnosis (chest pain, altered mental status, abdominal pain women, abdominal pain men, vaginal bleeding, weakness, fever, dyspnea, syncope, headache, dizziness, GI bleed, back pain, seizure, CVA, palpatations, mental health, musculoskeletal)? @ -Differential Back Pain: Strain, zoster, cauda equina syndrome, epidural abscess, vertebral osteomyelitis, discitis, fracture, subluxation, disc herniation, DJD, spinal stenosis, dissection, AAA, pancreatitis, peptic ulcer disease, pyelonephritis, kidney stone, this is not meant to be an all-inclusive list. EKG interpreted by me (3pts min.). @ -None X-rays interpreted by me (1pt min.). @ -None done CT interpreted by me (1pt min.). @ -None done U/S interpreted by me (1pt. min.). @ -None done What testing was considered but not performed or refused? (CT, X-rays, U/S, labs)? Why? @ -None What meds were considered but not given or refused? Why? @ -None Did you discuss the management of the patient with other professionals (professionals i.e. EDSON Nick, ORGANIC PREPARATION TECHNICIAN, lab, RT, psych nurse, social security benefits interviewer, e marketing specialist, teacher, ship's electronic warfare officer, case worker)? Give summary @ -No Was smoking cessation discussed for >3mins.? @ -No Was critical care preformed (if so, how long)? @ -No Were there social determinants of health that impacted care today? How? (Homelessness, low income, unemployed, alcoholism, drug addiction, transportation, low edu. Level, literacy, decrease access to med. care, senior care, rehab)? @ -No Was there de-escalation of care discussed even if they declined (Discuss DNR or withdrawal of care, Hospice)? DNR status @ -No What co-morbidities impacted this encounter? (DM, HTN, Smoking, COPD, CAD, Cancer, CVA, ARF, Chemo, Hep., AIDS, mental health diagnosis, sleep apnea, morbid obesity)? @ -None Was patient admitted / discharged? Hospital course, mention meds given and route, prescriptions, significant lab abnormalities, going to OR and other pertinent info. @ -Discharge. Patient had adequate pain control here with Toradol, Flexeril, morphine. Patient advised to continue already prescribed medications for back pain. Provided follow-up with orthopedics. Discussed return precautions with patient who verbalizes agreement Undiagnosed new problem with uncertain prognosis? @ -No Drug Therapy requiring intensive monitoring for toxicity (Heparin, Nitro, Insulin, Cardizem)? @ -No Were any procedures done? @ -No Diagnosis/symptom? @ -Back pain, spinal stenosis Acute, or Chronic, or Acute on Chronic? @ -Acute on chronic Uncomplicated (without systemic symptoms) or Complicated (systemic symptoms)? @ -Uncomplicated Side effects of treatment? @ -No Exacerbation, Progression, or Severe Exacerbation? @ -No Poses a threat to life or bodily function? How? (Chest pain, [place], [place], pneumonia, PE, COPD, DKA, ARF, appy, cholecystitis, CVA, Diverticulitis, Homicidal, Suicidal, threat to staff... and all critical care pts) @ -No Disposition Clinical Impression: Back pain, Spinal stenosis Disposition: HOME SELF-CARE Condition: Good Instructions (If sedation given, give patient instructions): Acute Low Back Pain (ED), Lumbar Spinal Stenosis (ED) Additional Instructions: Please return to the Emergency Department if symptoms worsen or any other concerns. Is patient prescribed a controlled substance at d/c from ED?: No Referrals: Mohan Mcdonald MD [Primary Care Provider] - 1-2 days Josr Garces DO [Doctor of Osteopathic Medicine] - 1-2 days Time of Disposition: 13:00
[2022-09-24] MEDS ORDERED: CYCLOBENZAPRINE 10 MG TAB PO STA (11:16)
[2022-09-24] MEDS ORDERED: MORPHINE SULFATE 4 MG/ML SYRINGE IM STA (12:32)
--- NOTE | 2022-09-24 12:33 | XR ---
EXAMINATION TYPE: XR lumbar spine 2 or 3V DATE OF EXAM: 09/24/2022 12:27 PM INDICATION: Patient age:Male; 67 years old; Reason for study: back pain; PHH. COMPARISON: 07/31/2012 TECHNIQUE: Frontal, lateral and coned in L5-S1 lateral views of the spine. FINDINGS: No evidence of any acute osseous pathology. No evidence of loss of vertebral body height i s seen. There is normal alignment of the lumbar vertebral bodies. Mild scattered disc space narrowing . Multilevel marginal osteophyte formation throughout the visualized spine. There is facet joint arth ropathy throughout the spine. Scattered at least mild neural foraminal stenosis worse at L5-S1. Ather osclerosis of the arterial vasculature. IMPRESSION: 1. No acute fracture. 2. Mild to moderate multilevel disc degeneration.
[2022-09-24 13:55] VITALS: BP 154/79; PULSE 72; RESP 18; TEMP 98.5
== END 2022-09-24 13:55 | disposition home or self-care (01) ==
LOC: EC 10:01
DX: M48.00 Spinal stenosis, site unspecified (principal); J44.9 Chronic obstructive pulmonary disease, unspecified; E78.5 Hyperlipidemia, unspecified; I10 Essential (primary) hypertension; F41.9 Anxiety disorder, unspecified; F32.A Depression, unspecified; Z87.891 Personal history of nicotine dependence; Z79.82 Long term (current) use of aspirin; Z79.899 Other long term (current) drug therapy; Z79.51 Long term (current) use of inhaled steroids
CPT/HCPCS: 99284; 96372 ×2; 72100; J2270; J1885

== ENCOUNTER → 2022-10-16 | Outpatient (CLI) | payer MEDICARE, OTHER ==
--- NOTE | 2022-10-16 15:56 | MR ---
EXAMINATION TYPE: MR lumbar spine wo con DATE OF EXAM: 10/16/2022 COMPARISON: Lumbar spine radiograph 09/24/2022 HISTORY: Chronic LBP, LLE radiculopathy. Hx surgery. TECHNIQUE: Multiplanar, multisequence images of the lumbar spine were acquired without IV contrast. FINDINGS: Lumbar segments are intact. No paraspinal masses are identified. Conus medullaris has a normal appe arance. The diffuse heterogenous decreased signal of the bone marrow. Mild levo curvature of the lumb ar spine with apex at L3. Type II Modic changes involving the inferior endplate of L3 and superior en dplate of L4. Grade 1 anterolisthesis of L4 on L5. No pars defects. T12-L1: No disc herniation or disc bulge. No significant central canal neural foraminal stenosis. L1-L2: Central disc protrusion with mild effacement of the anterior thecal sac. Bilateral facet arthr opathy. Mild bilateral neural foraminal stenosis. L2-L3: No disc herniation or disc bulge. Bilateral facet arthropathy. Mild left neural foraminal sten osis. The right neural foramen is patent. L3-L4: Right subarticular zone disc protrusion with mild effacement of the anterior thecal sac. Bilat eral facet arthropathy. Moderate right neural foraminal stenosis. The left neural foramen is patent. L4-L5: Grade 1 anterolisthesis. Minimal broad-based disc bulge. Bilateral facet arthropathy. No signi ficant central canal or neural foraminal stenosis. L5-S1: No disc herniation or bulge. Bilateral facet arthropathy. No significant central canal or neur al foraminal stenosis. IMPRESSION: 1. L1-L2 disc herniation with mild central canal stenosis. Bilateral facet arthropathy at this level with mild bilateral neural foraminal stenosis. 2. L3-L4 disc herniation with mild central canal stenosis. Bilateral facet arthropathy. There is mod erate right neural foraminal stenosis secondary to herniation and facet arthropathy. 3. Multilevel degenerative disc disease and facet arthropathy as described above. 4. Grade 1 anterolisthesis of L4 on L5. 5. Diffuse red marrow conversion can be seen in the setting of tobacco abuse, anemia, or myeloprolif erative disorder.
== END | disposition home or self-care (01) ==
LOC: RADMRIMAIN 12:43
PROVIDERS: ATTEND Orthopaedic Surgery
DX: M51.16 Intervertebral disc disorders with radiculopathy, lumbar region (principal); M48.061 Spinal stenosis, lumbar region without neurogenic claudication; M47.26 Other spondylosis with radiculopathy, lumbar region; M43.16 Spondylolisthesis, lumbar region; M99.73 Connective tissue and disc stenosis of intervertebral foramina of lumbar region; G89.29 Other chronic pain
CPT/HCPCS: 72148

== ENCOUNTER 2022-12-04 08:36 | Day surgery (SDC) | payer MEDICARE, OTHER ==
[2022-11-30 15:28] VITALS: BMI 35.7
[~2022-12-04 08:36] MED LIST changes: -DEXAMETHASONE SOD PHOSPHATE 4 MG/ML 1 ML VIAL IV ONE; -HYDROmorphone 0.5 MG/0.5 ML SYRINGE IVP PRN; -MIDAZOLAM 2 MG/2 ML VIAL IV PRN; -ONDANSETRON 4 MG/2 ML VIAL IVP ONE
[2022-12-04 09:04] VITALS: BP 145/69; PULSE 64; RESP 16; TEMP 96.9
[2022-12-04] MEDS ORDERED: methylPREDNISolone ACETATE 40 MG/ML 1 ML VIAL ONE (09:52)
[2022-12-04] MEDS ORDERED: IOPAMIDOL M200 10 ML VIAL ONE (09:52)
--- NOTE | 2022-12-04 10:01 | P.PCN ---
Date of Procedure: 12/04/22 Procedure(s) Performed: PREOPERATIVE DIAGNOSIS: 1- Lumbar Degenerative Disc Diseases 2-Lumbar spondylosis with Facet arthropathy without myelopathy. 3-lumbar postlaminectomy pain syndrome. 4-lumbar radiculopathy. POSTOPERATIVE DIAGNOSIS: Same as preoperative diagnosis. PROCEDURE 1. Lumbar epidural steroid injection under fluoroscopic guidance at the L1-2 level. (Fluoroscopy imaging was available in radiology department) 2. Lumbar epidurogram. ANESTHESIA: Lidocaine 1% 3 and then only. EBL: Minimal PROCEDURE INDICATION: The patient with low back pain and radiculitis symptoms unresponsive to conservative treatment. Fluoroscopy was used to optimize visualization of the needle placement and to maximize safety. PROCEDURE DESCRIPTION / TECHNIQUE: The patient was seen and identified in the preoperative area. Risks, benefits, complications including but not limited to infections ,bleeding ,allergic reaction to the medications ,nerve damage and not complete pain releife , and alternatives were discussed with the patient. The patient agreed to proceed with the procedure and signed the consent, and vital signs were stable. Patient was taken to the OR and time out was completed. The patient was placed in the prone position on procedure table and a pillow was placed under the abdomen to reduce lumbar lordosis. The lumbosacral area was prepped and draped in the usual sterile fashion.ere closely monitored during the procedure. Vital signs was monitered during the entire procedure. Using anterior-posterior fluoroscopy, the L1-2 interlaminar space was identified and the skin over this site was marked and then infiltrated with 1% lidocaine subcutaneously. Subsequently, a 20-gauge Tuohy epidural needle was inserted and advanced toward the epidural space using the ``Loss of resistance technique and guided by AP and lateral fluoroscopy. The correct needle position in the epidural space was verified with the injection of 2 mL of the water soluble contrast dye Isovue 200 contrast and observing an excellent epidurogram with the epidural spread of the dye, after negative aspiration for blood and CSF and in the absence of paresthesias. Again after negative aspiration, a 6 ml mixture containing 40 mg of Depo-medrol ( Preservetive Free ), and 2 ml of preservative free Normal Saline, and 2 ml of preservative free lidocaine 1% solution was injected and a washout of epidurogram was seen. Needle was withdrawn intact, skin was cleansed, and bandages were applied. COMPLICATIONS: None DISPOSITION / PLANS: The patient was placed in a supine position and transferred to the recovery area in a stable condition for observation. There was no eviden ce of lower extremity motor or sensory deficit after the procedure. Patient was discharged from the recovery room after meeting discharge criteria. Home discharge instructions were given to the patient by the staff. The patient was reexamined prior to discharge. The patient will schedule a follow up in the clinic in 2-4 weeks.
--- NOTE | 2022-12-04 12:36 | FL ---
Fluoroscopy INDICATION: Pain FINDINGS: Fluoroscopy time: 4 seconds. Total dose area product (DAP) in uGy*m?, mGy*cm? (or similar): 0.28067 Images obtained: 1. IMPRESSION: 1. Documentation of fluoroscopy.
== END 2022-12-04 10:26 | disposition home or self-care (01) ==
LOC: ORPAIN 08:36
PROVIDERS: ATTEND Specialist
DX: M51.16 Intervertebral disc disorders with radiculopathy, lumbar region (principal); M47.26 Other spondylosis with radiculopathy, lumbar region; M96.1 Postlaminectomy syndrome, not elsewhere classified
CPT/HCPCS: 62323; J1030; Q9966

== ENCOUNTER → 2022-12-26 | Outpatient (CLI) | payer MEDICARE, OTHER ==
[2022-12-26 13:43] VITALS: BP 131/79; PULSE 99; RESP 15; TEMP 98.2
--- NOTE | 2022-12-26 14:53 | P.PAINPG ---
PQRS Measure Charge Sheet Comment: A 67 yr old male with a history of severe and chronic LBP secondary to post laminectomy syndrome presents today for evaluation s/p NICCI L1-L2 #1. Pt states he experienced 70% pain relief x 3 wks s/p procedure. Pain level is provoked at 1 /10 in intensity, constant, localized in the lumbar spine, dull in character without shooting pain. Pain is provoked by bending and lifting. Pain is alleviated with injections, heat, standing up right, repositioning and rest. Oswestry axial pain score at . Interventional pain procedures completed include NICCI L1-L2 x1 Patient is currently on DENIES Patient denies any side effects of the medication(s), denies excessive drowsiness or sleepiness, denies suicidal ideation and reports that the current pain medication is helping to control the pain and improve activities of daily living. Patient denies any motor or sensory deficits. Patient denies any fever or night sweats, denies any change in the bowel movements or urination. Physical Examination: -Constitutional: Cooperative. Not in acute distress . - Neurologic: Cranial nerve II to XII intact. No focal neurological deficits. - Psychatric: Alert & oriented x 3. Matching mood & appropriate affect. Judgment and insight intact. - Musculoskeletal: Cervical spine: Muscle bulk/ tone/ strength in the bilateral upper extremities normal Vertebral body tenderness to palpation over Spurling test positive Distraction test positive Facet loading test positive TTP Thoracic spine Muscle bulk / tone/ strength in the bilateral paraspinal muscles normal Vertebral body tender to palpation over Facet loading test positive TTP Lumbar spine: Motor bulk/ tone/ strength lower extremities , thigh and legs : 5/5 Deep tendon reflexes : Normal Knee Jerk. Normal Ankle Jerk . Vertebral body tenderness to palpation over L2 Sanchez Test positive Lumbar Facet Loading Test positive Straight Leg Raise: positive at 30 degrees right side/ left side Gaenslen's Test positive Sacral spine : Severe tenderness over the Sacroiliac joint: right side / left side Range of motion: Flexion of the lumbar spine <60 degrees Range of motion: Extension of the lumbar spine <20 degrees Gaenslen's Test positive right side / left side Atilio test: positive right side / left side Thigh Thrust Test positive right side / left side Sacral Thrust Test positive right side / left side Assessment and plan: Chronic LBP secondary to post laminectomy syndrome Will manage residual pain and may RTC on an as needed basis. All questions answered. I have spent less than 30 minutes on patient care today. Dr Cardoza was available by phone for the evaluation of this patient. The time was used to review the medical records including relevant urine studies and Prescription history (MAPs), review of the available imaging, evaluation and examination of the patient, coordination of care with the medical staff and if applicable referring physicians, as well as creation of the medical record PQRS Narrative: Smoking Status Former smoker Hx Alcohol Use (MH) No Home Medications: Ambulatory Orders Albuterol Inhaler [Ventolin Inhaler] 2 puff INHALATION QID PRN 02/24/15 FLUoxetine HCL [PROzac] 20 mg PO BID 02/24/15 Albuterol Nebulized [Ventolin Nebulized] 2.5 mg INHALATION QID PRN 04/03/16 Nitroglycerin Sl Tabs [Nitrostat] 0.4 mg SUBLINGUAL DIRECTED PRN 04/03/16 Budesonide/Formoterol Fumarate [Symbicort 160-4.5 Mcg Inhaler] 2 puff INHALATION BID 04/10/19 Metoprolol Tartrate [Lopressor] 25 mg PO HS 04/10/19 Montelukast [Singulair] 10 mg PO DAILY 04/10/19 Tamsulosin HCl [Flomax] 0.4 mg PO DAILY 04/10/19 buPROPion HCL [Wellbutrin Sr] 200 mg PO QAM 04/10/19 lisinopriL [Zestril] 5 mg PO QAM 04/10/19 Gabapentin [Neurontin] 100 mg PO BID 11/20/22 Controlled Substance Measures - Controlled Substance Measures Is patient prescribed a controlled substance at discharge?: No
== END ==
LOC: PNWHC3 13:03
PROVIDERS: ATTEND Specialist
DX: M96.1 Postlaminectomy syndrome, not elsewhere classified (principal); G89.29 Other chronic pain; Z87.891 Personal history of nicotine dependence
CPT/HCPCS: 99211